=== PATIENT | female | born 1980 | race Caucasian/White ===

== ENCOUNTER 2016-11-21 12:43 | Emergency (ER) | payer BC, OTHER ==
[2016-11-21 12:59] VITALS: BP 131/75; PULSE 92; TEMP 99.1; BMI 27.1
[2016-11-21] MEDS ORDERED: DIPHTH,PERTUSS(ACELL),TET 0.5 ML DISP.SYRIN IM ONE (13:48)
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
[2016-11-21] MEDS ORDERED: HIV POST EXPOSURE PROPHYLAXIS KIT NR ONE (14:22)
[2016-11-21] MEDS ORDERED: IBUPROFEN 600 MG TABLET (FP) PO ONE ×2 (14:22→15:23)
[2016-11-21] MEDS ORDERED: HIV POST EXPOSURE PROPHYLAXIS KIT PO ONE (14:29)
[2016-11-21] MEDS ORDERED: HEPATITIS B IMMUNE GLOBULIN 5 ML VIAL IM ONE (14:36)
[2016-11-21 14:55] LABS: ALBUMIN 4.3 g/dl (3.4-5.0); ALK PHOS 68 U/L (45-117); ANION GAP 7 (8-16); BILIRUBIN,TOTAL 2.4 mg/dL (0.2-1.0); CALCIUM 8.9 mg/dL (8.5-10.1); CO2 28 mmol/L (21-32); CREATININE 0.6 mg/dL (0.55-1.02); GLUCOSE,RANDOM 77 mg/dL (74-106); SGOT/AST 17 U/L (15-37); SGPT/ALT 27 U/L (12-78); TOT PROT 7.7 g/dl (6.4-8.2)
[2016-11-21 16:51] LABS: HIV 1 & 2 AB NEGATIVE; HIV 1 AGp24 NEGATIVE
== END 2016-11-21 16:15 | disposition home or self-care (01) ==
LOC: JERFT 12:43
PROC: 3E0234Z Introduction of Serum, Toxoid and Vaccine into Muscle, Percutaneous Approach (ICD-10-PCS; principal; 2016-11-21)
PROC: 3E0234Z Introduction of Serum, Toxoid and Vaccine into Muscle, Percutaneous Approach (ICD-10-PCS; 2016-11-21)
DX: S80.871A Other superficial bite, right lower leg, initial encounter (principal); S70.12XA Contusion of left thigh, initial encounter; S00.81XA Abrasion of other part of head, initial encounter; Y04.1XXA Assault by human bite, initial encounter; Y93.89 Activity, other specified; Y92.89 Other specified places as the place of occurrence of the external cause; Y99.8 Other external cause status; Y07.9 Unspecified perpetrator of maltreatment and neglect
CPT/HCPCS: 36415; 80053; 80074; 84703; 87389; 90715; 99281-25

== ENCOUNTER 2018-09-07 11:32 | Emergency (ER) | payer BC, OTHER ==
[2018-09-07 11:41] VITALS: BP 154/70; PULSE 92; TEMP 98.2; BMI 25.6
--- NOTE | 2018-09-07 12:29 | PDOC ---
History of Present Illness - General Chief Complaint: Injury Stated Complaint: INJURY Time Seen by Provider: 09/07/18 11:49 History Source: Patient Exam Limitations: Clinical Condition - History of Present Illness Initial Comments: 09/07/18 12:23 Patient with no significant past medication present with complaint of lower back , left shoulder, right-sided neck and left arm pain status post slip and fall going down stairs yesterday. Patient reports she was carrying a laundry bag and slip and fell in the back hitting the buttocks. Patient denies hitting head or loss of consciousness or patient reported bruising to left upper arm from the fall. Timing/Duration: 24 hours Past History - Past Medical History Allergies/Adverse Reactions: Allergies Allergy/AdvReac Type Severity Reaction Status Date / Time pineapple Allergy Verified 09/07/18 11:38 Home Medications: Ambulatory Orders Ibuprofen [Advil -] 400 mg PO ASDIR 09/07/18 Methocarbamol [Robaxin -] 500 mg PO BID PRN #14 tablet 09/07/18 Naproxen 500 mg PO BID PRN #20 tablet 09/07/18 Anemia: Yes - Immunization History Immunization Up to Date: Yes - Suicide/Smoking/Psychosocial Hx Smoking History: Never smoked Have you smoked in the past 12 months: No Hx Alcohol Use: No Drug/Substance Use Hx: No Review of Systems - Review of Systems Able to Perform ROS?: Yes Is the patient limited Serbian proficient: No Constitutional: No: Weakness HEENTM: No: Blurred Vision, Recent change in vision, Double Vision Respiratory: No: Symptoms reported Cardiac (ROS): No: Symptoms Reported ABD/GI: No: Nausea, Vomiting Musculoskeletal: Yes: Back Pain (lower back tailbone), Muscle Pain (left shoulder , left upper arm), Neck Pain (right side of neck). No: Joint Swelling , Joint Stiffness Neurological: No: Headache, Numbness, Weakness, Dizziness All Other Systems: Reviewed and Negative *Physical Exam - Vital Signs Last Vital Signs Temp Pulse Resp BP Pulse Ox 98.2 F 92 H 18 154/70 100 09/07/18 11:40 09/07/18 11:40 09/07/18 11:40 09/07/18 11:40 09/07/18 11:40 - Physical Exam Comments: 09/07/18 12:26 GENERAL: Well developed, well nourished. Awake and alert. No acute distress. CARDIOVASCULAR: Regular rate and rhythm. No murmurs, rubs, or gallops. PULMONARY: No evidence of respiratory distress. Lungs clear to auscultation bilaterally. No wheezing, rales or rhonchi. ABDOMINAL: Soft. Non-tender. Non-distended. No rebound or guarding. No organomegaly. Normoactive bowel sounds MUSCULOSKELETAL : mild tenderness over posterior lower sacral bone. mild tenderness over left humerus. mild tenderness to right paracervical muscle of C3 -C6. FROM on neck. mild tenderness over posterior region of left shoulder. No bony deformities SKIN: mild superficial bruising to lateral side of mid-upper left arm. Warm and dry. Normal capillary refill. NEUROLOGICAL: Alert, awake, appropriate. No motor deficits in the lower extremities. Gait is normal without ataxia. PSYCHIATRIC: Cooperative. Good eye contact. Appropriate mood and affect. General Appearance: Yes: Nourished, Appropriately Dressed. No: Apparent Distress Moderate Sedation - Procedure Monitoring Vital Signs: Procedure Monitoring Vital Signs Temperature 98.2 F 09/07/18 11:40 Pulse Rate 92 H 09/07/18 11:40 Respiratory Rate 18 09/07/18 11:40 Blood Pressure 154/70 09/07/18 11:40 O2 Sat by Pulse Oximetry (%) 100 09/07/18 11:40 ED Treatment Course - RADIOLOGY Radiology Studies Ordered: Category Date Time Status HUMERUS-LEFT [RAD] Stat Radiology 09/07/18 12:11 Ordered SHOULDER-LEFT [RAD] Stat Radiology 09/07/18 12:11 Ordered SPINE-LUMBAR SACRAL [RAD] Stat Radiology 09/07/18 12:11 Ordered Medical Decision Making - Medical Decision Making 09/07/18 12:29 Patient with no significant past medication present with complaint of pain to sacral bone, left shoulder, right side of neck and left upper arm status post slip and fall yesterday. Patient with no loss of consciousness and no dizziness before or after fall. Exam was significant for mild tenderness to right side of neck, posterior left shoulder and left upper arm. Symptoms is likely from muscle strain. X-ray of sacral bone, left shoulder and left humerus ordered to rule out any acute fracture from the fall. Patient be discharged home on NSAIDs and muscle relaxer if negative x-ray with orthopedics follow-up as needed 09/07/18 13:01 x-rays of left shoulder, lumbaosacral and left humerus shows no acute fracture or dislocations. patient stable for discharge on NSAIDS and muscle relaxer with orthopedics follow-up as needed *DC/Admit/Observation/Transfer Diagnosis at time of Disposition: Neck muscle strain Qualifiers: Encounter type: initial encounter Qualified Code(s): S16.1XXA - Strain of muscle, fascia and tendon at neck level, initial encounter Fall Qualifiers: Encounter type: initial encounter Qualified Code(s): W19.XXXA - Unspecified fall, initial encounter Back contusion Qualifiers: Encounter type: initial encounter Laterality: unspecified laterality Qualified Code(s): S20.229A - Contusion of unspecified back wall of thorax, initial encounter Sprain of left shoulder Qualifiers: Encounter type: initial encounter Shoulder sprain type: unspecified sprain Qualified Code(s): S43.402A - Unspecified sprain of left shoulder joint, initial encounter - Discharge Dispostion Disposition: HOME Condition at time of disposition: Stable Decision to Admit order: No - Prescriptions Prescriptions: Methocarbamol [Robaxin -] 500 mg PO BID PRN #14 tablet PRN Reason: neck pain Naproxen 500 mg PO BID PRN #20 tablet PRN Reason: pain - Referrals Referrals: Bird Estrada MD [Staff Physician] - - Patient Instructions Printed Discharge Instructions: Whiplash Additional Instructions: take medication as prescribed as needed for pain. apply heat to neck and shoulder 2-3times/day for 5-10mins daily as needed. follow-up with referred orthopedics if symptoms persist for more than 5 days - Post Discharge Activity
== END 2018-09-07 13:11 | disposition home or self-care (01) ==
LOC: JERFT 11:32
DX: S20.229A Contusion of unspecified back wall of thorax, initial encounter (principal); S43.402A Unspecified sprain of left shoulder joint, initial encounter; S16.1XXA Strain of muscle, fascia and tendon at neck level, initial encounter; W18.09XA Striking against other object with subsequent fall, initial encounter; Y93.9 Activity, unspecified; Y92.89 Other specified places as the place of occurrence of the external cause
CPT/HCPCS: 72100-TC-FY; 73030-TC-LT-FY; 73060-TC-LT-FY; 99281-25